=== PATIENT | male | born 1955 | race Caucasian/White ===

== ENCOUNTER 2023-03-09 07:45 | Outpatient (REF) | payer MEDICARE, SELFPAY ==
--- NOTE | ~2023-03-09 | US_ITS ---
EXAMINATION: Noninvasive assessment of the bilateral lower extremities with ARTERIAL DUPLEX CLINICAL INFORMATION: Peripheral arterial disease, leg pain TECHNIQUE: Duplex Doppler techniques with waveform analysis and measurement of velocities in the bilateral common femoral, profunda femoris, superficial femoral, popliteal and tibial arteries were performed. COMPARISON: None FINDINGS: DIRECT DUPLEX DOPPLER FINDINGS: RIGHT LEG: Common femoral artery: 107 cm/s, phasicity: Triphasic Profunda femoris artery: 67.6 cm/s, phasicity: Biphasic Superficial femoral artery (proximal): 102 cm/s, phasicity: Triphasic Superficial femoral artery (mid): 136 cm/s, phasicity: Triphasic Superficial femoral artery (distal): 108 cm/s, phasicity: Triphasic Popliteal artery: 88.4 cm/s, phasicity: Triphasic Posterior tibial artery: 58.0 cm/s, phasicity: Biphasic Peroneal artery: 65.2 cm/s, phasicity: Triphasic Anterior tibial artery: 29.2 cm/s, phasicity: Monophasic Dorsalis pedis artery: 56.5 cm/s, phasicity:Biphasic LEFT LEG: Common femoral artery: 104 cm/s, phasicity: Triphasic Profunda femoris artery: 69.8 cm/s, phasicity: Biphasic Superficial femoral artery (proximal): 101 cm/s, phasicity: Triphasic Superficial femoral artery (mid): 114 cm/s, phasicity: Triphasic Superficial femoral artery (distal): 90.1 cm/s, phasicity: Triphasic Popliteal artery: 96.2 cm/s, phasicity: Triphasic Posterior tibial artery: 59.0 cm/s, phasicity: Biphasic Peroneal artery: 65.2 cm/s, phasicity: Biphasic Anterior tibial artery: 75.2 cm/s, phasicity: Biphasic Dorsalis pedis artery: 58.5 cm/s, phasicity: Biphasic US/US arterial duplex LE BI IMPRESSION: Right leg: Patent arterial flow throughout the right lower extremity. No significant arterial stenosis or occlusion Left leg: Patent arterial flow throughout the left lower extremity. No significant arterial stenosis or occlusion
== END 2023-03-09 07:46 | disposition home or self-care (01) ==
LOC: HO.US 07:45
PROVIDERS: PCP Family Medicine; Visit Provider Radiology Vascular & Interventional Radiology
DX: I87.2 Venous insufficiency (chronic) (peripheral) (principal); I73.9 Peripheral vascular disease, unspecified
CPT/HCPCS: 93925